=== PATIENT | female | born 1980 | race African-American/Black ===

== ENCOUNTER 2021-01-28 05:29 | Emergency (ER) | payer MEDICAID ==
[~2021-01-28] VITALS: Ht 149.9 cm; Wt 48.0 kg
[2021-01-28] MEDS ORDERED: ACETAMINOPHEN 325MG TABLET PO STA (05:52)
[2021-01-28] MEDS ORDERED: SODIUM CHLORIDE 0.9% 1,000 ML IV ONE (06:00)
[2021-01-28] MEDS ORDERED: SODIUM CHLORIDE 0.9% 1000ML BAG (SEPSIS BOLUS) IV ONE (06:00)
[2021-01-28 06:15] LABS: BASOPHILS % 0.6 % (0.0-2.0); EOSINOPHILS % 0.6 % (0.0-5.0); HEMATOCRIT. 36.6 % (36.0-48.0); HEMOGLOBIN. 12.4 g/dL (12.0-16.0); LYMPHOCYTES % 28.7 % (20.0-50.0); MEAN CORPUSCULAR HEMOGLOBIN 30.1 pg (28.0-32.0); MEAN CORPUSCULAR VOLUME 88.9 fL (81.0-99.0); MEAN PLATELET VOLUME 8.7 fl (7.4-10.4); NEUTROPHILS % 58.1 % (40.0-76.0); PLATELET 150 x1000/uL (130-400); RED BLOOD CELL COUNT 4.11 mill/uL (4.2-5.4); RED CELL DISTRIBUTION WIDTH 13.3 % (11.6-14.6)
[2021-01-28 06:17] LABS: CHLORIDE 106 mEq/L (98-107)
[2021-01-28 06:19] LABS: PROTHROMBIN TIME 11.1 sec (9.6-11.0)
[2021-01-28 06:40] LABS: CLARITY URINE CLEAR (CLEAR); COLOR URINE YELLOW (YELLOW); KETONES URINE TRACE (NEGATIVE); LEUKOCYTE ESTERASE URINE NEGATIVE (NEGATIVE); NITRITE URINE NEGATIVE (NEGATIVE); OCCULT BLOOD URINE 3+ (NEGATIVE); PH URINE 5.5 (4.5-8.0); PROTEIN URINE TRACE (NEGATIVE); SPECIFIC GRAVITY URINE 1.028 (1.005-1.030); UROBILINOGEN URINE 0.2 E.U./dL (0.2-1.0)
[2021-01-28] MEDS ORDERED: TOPUD PO (07:02)
[2021-01-28 07:15] VITALS: BP 115/69
== END 2021-01-28 07:17 | disposition home or self-care (01) ==
LOC: ER 05:29 → CANBEDREQ 11:43
DX: U07.1 COVID-19 (principal); I49.8 Other specified cardiac arrhythmias
CPT/HCPCS: 36415; 71045; 80053; 81003; 83605; 84145; 84484; 85025; 85610; 87040; 87086; 93005; 99285; C9803; J7030; U0003; U0005

== ENCOUNTER 2022-12-06 23:51 | Emergency (ER) | payer MEDICAID ==
[~2022-12-06] VITALS: Ht 149.9 cm; Wt 48.2 kg
[~2022-12-06 23:51] MED LIST: TOPUD PO
[2022-12-06 23:57] VITALS: BP 176/83; PULSE 107; RESP 18; TEMP 98.6; O2SAT 98
[2022-12-07] MEDS ORDERED: P20 MT (02:29)
[2022-12-07] MEDS ORDERED: FAMOTIDINE 20MG TABLET PO ONE (02:30)
[2022-12-07] MEDS ORDERED: DIPHENHYDRAMINE 25MG CAPSULE PO ONE (02:30)
[2022-12-07] MEDS ORDERED: DEXAMETHASONE 10 MG/ML VIAL IV ONE (02:30)
== END 2022-12-07 03:14 | disposition home or self-care (01) ==
LOC: ER 12-07 00:31
DX: T78.40XA Allergy, unspecified, initial encounter (principal); Z91.018 Allergy to other foods; X58.XXXA Exposure to other specified factors, initial encounter
CPT/HCPCS: 81025; 96374; 99283; Q0163; J1100; Z7610